=== PATIENT | female | born 1995 | race American Indian/Alaskan Native ===

== ENCOUNTER 2020-03-25 10:17 | Emergency (ER) | payer SELFPAY ==
[2020-03-25] MEDS ORDERED: ONDANSETRON 4 MG ODT TAB PO ONE (10:57)
[2020-03-25] MEDS ORDERED: KETOROLAC 60 MG/2 ML INJ IM ONE (10:57)
[2020-03-25 11:12] LABS: Bacteria,Urine 1+ /HPF (Negative); Bilirubin,Urine NEG (Negative); Blood,Urine NEG (Negative); Color,Urine Straw (Yellow); Protein,Urine <15 mg/dL mg/dL (Negative); Urobilinogen,Urine < 2.0 mg/dL (<2.0)
[2020-03-25 11:13] LABS: Basophils % (Auto) 0.8 % (0.0-1.8); Eosinophils # (Auto) 0.1 K/mm3 (0.0-0.4); Eosinophils % (Auto) 0.8 % (0.0-4.3); Hematocrit 37.4 % (30.3-42.9); Lymphocytes # (Auto) 1.2 K/mm3 (1.2-5.4); Lymphocytes % (Auto) 17.7 % (13.4-35.0); Mean Corpuscular HGB Conc 35 % (30-34); Mean Corpuscular Volume 91 fl (79-97); Monocytes # (Auto) 0.5 K/mm3 (0.0-0.8); Monocytes % (Auto) 7.5 % (0.0-7.3); Platelet Count 245 K/mm3 (140-440); Red Blood Count 4.11 M/mm3 (3.65-5.03); Red Cell Distribution Width 12.7 % (13.2-15.2)
--- NOTE | 2020-03-25 11:22 | Emergency Department Report ---
ED Abdominal Pain HPI - General Chief Complaint: Abdominal Pain Stated Complaint: ABD PAIN Time Seen by Provider: 03/25/20 10:29 Source: patient Mode of arrival: Ambulatory Limitations: No Limitations - History of Present Illness Initial Comments: Patient is a 24-year-old female presents emergency room complaints of suprapubic abdominal pain that began 3 days ago. She states it feels like a cramping sensation. She states that a couple days ago she had diarrhea but that has since resolved. She states that she has had some urinary frequency. She denies any nausea, vomiting, fever, dysuria, vaginal discharge or irritation. No past medical history. No allergies to medications. - Related Data Allergies Allergy/AdvReac Type Severity Reaction Status Date / Time No Known Allergies Allergy Unverified 03/25/20 10:26 ED Review of Systems ROS: Stated complaint: ABD PAIN Other details as noted in HPI Comment: All other systems reviewed and negative ED Past Medical Hx - Past Medical History Previous Medical History?: No - Surgical History Past Surgical History?: No - Social History Smoking Status: Never Smoker Substance Use Type: Alcohol ED Physical Exam - General Limitations: No Limitations General appearance: alert, in no apparent distress - Head Head exam: Present: atraumatic, normocephalic - Eye Eye exam: Present: normal appearance - ENT ENT exam: Present: mucous membranes moist - Respiratory Respiratory exam: Present: normal lung sounds bilaterally. Absent: respiratory distress, wheezes, rales, rhonchi, stridor, chest wall tenderness, accessory muscle use, decreased breath sounds, prolonged expiratory - Cardiovascular Cardiovascular Exam: Present: regular rate, normal rhythm, normal heart sounds. Absent: systolic murmur, diastolic murmur, rubs, gallop - GI/Abdominal GI/Abdominal exam: Present: soft, tenderness (mild suprapubic ), normal bowel sounds. Absent: distended, guarding, rebound, rigid - Neurological Exam Neurological exam: Present: alert, oriented X3 - Psychiatric Psychiatric exam: Present: normal affect, normal mood - Skin Skin exam: Present: warm, dry, intact ED Course Vital Signs 03/25/20 10:20 Temperature 98.3 F Pulse Rate 83 Respiratory 16 Rate Blood Pressure 120/64 O2 Sat by Pulse 100 Oximetry ED Medical Decision Making - Lab Data Result diagrams: 03/25/20 11:00 03/25/20 11:00 Lab Results 03/25/20 03/25/20 03/25/20 Range/Units 11:00 11:00 11:00 WBC 6.5 (4.5-11.0) K/mm3 RBC 4.11 (3.65-5.03) M/mm3 Hgb 13.0 (10.1-14.3) gm/dl Hct 37.4 (30.3-42.9) % MCV 91 (79-97) fl MCH 32 (28-32) pg MCHC 35 H (30-34) % RDW 12.7 L (13.2-15.2) % Plt Count 245 (140-440) K/mm3 Lymph % (Auto) 17.7 (13.4-35.0) % [place] % (Auto) 7.5 H (0.0-7.3) % Eos % (Auto) 0.8 (0.0-4.3) % Baso % (Auto) 0.8 (0.0-1.8) % Lymph # (Auto) 1.2 (1.2-5.4) K/mm3 [place] # (Auto) 0.5 (0.0-0.8) K/mm3 Eos # (Auto) 0.1 (0.0-0.4) K/mm3 Baso # (Auto) 0.0 (0.0-0.1) K/mm3 Seg Neutrophils % 73.2 H (40.0-70.0) % Seg Neutrophils # 4.8 (1.8-7.7) K/mm3 Sodium 139 (137-145) mmol/L Potassium 3.7 (3.6-5.0) mmol/L Chloride 104.0 (98-107) mmol/L Carbon Dioxide 27 (22-30) mmol/L Anion Gap 12 mmol/L BUN 8 (7-17) mg/dL Creatinine 0.7 (0.6-1.2) mg/dL Estimated GFR > 60 ml/min BUN/Creatinine Ratio 11 % Glucose 70 (65-100) mg/dL Calcium 9.0 (8.4-10.2) mg/dL Total Bilirubin 0.60 (0.1-1.2) mg/dL AST 11 (5-40) units/L ALT 7 (7-56) units/L Alkaline Phosphatase 49 (35-129) units/L Total Protein 6.5 (6.3-8.2) g/dL Albumin 4.1 (3.9-5) g/dL Albumin/Globulin Ratio 1.7 % Lipase 31 (13-60) units/L HCG, Qual Positive (Negative) HCG, Quant (0-4) mIU/mL Urine Color (Yellow) Urine Turbidity (Clear) Urine pH (5.0-7.0) Ur Specific [place] (1.003-1.030) Urine Protein (Negative) mg/dL Urine Glucose (UA) (Negative) mg/dL Urine Ketones (Negative) mg/dL Urine Blood (Negative) Urine Nitrite (Negative) Urine Bilirubin (Negative) Urine Urobilinogen (<2.0) mg/dL Ur Leukocyte Esterase (Negative) Urine WBC (Auto) (0.0-6.0) /HPF Urine RBC (Auto) (0.0-6.0) /HPF U Epithel Cells (Auto) (0-13.0) /HPF Urine Bacteria (Auto) (Negative) /HPF 03/25/20 03/25/20 Range/Units 11:00 Unknown WBC (4.5-11.0) K/mm3 RBC (3.65-5.03) M/mm3 Hgb (10.1-14.3) gm/dl Hct (30.3-42.9) % MCV (79-97) fl MCH (28-32) pg MCHC (30-34) % RDW (13.2-15.2) % Plt Count (140-440) K/mm3 Lymph % (Auto) (13.4-35.0) % [place] % (Auto) (0.0-7.3) % Eos % (Auto) (0.0-4.3) % Baso % (Auto) (0.0-1.8) % Lymph # (Auto) (1.2-5.4) K/mm3 [place] # (Auto) (0.0-0.8) K/mm3 Eos # (Auto) (0.0-0.4) K/mm3 Baso # (Auto) (0.0-0.1) K/mm3 Seg Neutrophils % (40.0-70.0) % Seg Neutrophils # (1.8-7.7) K/mm3 Sodium (137-145) mmol/L Potassium (3.6-5.0) mmol/L Chloride (98-107) mmol/L Carbon Dioxide (22-30) mmol/L Anion Gap mmol/L BUN (7-17) mg/dL Creatinine (0.6-1.2) mg/dL Estimated GFR ml/min BUN/Creatinine Ratio % Glucose (65-100) mg/dL Calcium (8.4-10.2) mg/dL Total Bilirubin (0.1-1.2) mg/dL AST (5-40) units/L ALT (7-56) units/L Alkaline Phosphatase (35-129) units/L Total Protein (6.3-8.2) g/dL Albumin (3.9-5) g/dL Albumin/Globulin Ratio % Lipase (13-60) units/L HCG, Qual (Negative) HCG, Quant 62297 H (0-4) mIU/mL Urine Color Straw (Yellow) Urine Turbidity Slightly-cloudy (Clear) Urine pH 7.0 (5.0-7.0) Ur Specific [place] 1.003 (1.003-1.030) Urine Protein <15 mg/dl (Negative) mg/dL Urine Glucose (UA) Neg (Negative) mg/dL Urine Ketones Neg (Negative) mg/dL Urine Blood Neg (Negative) Urine Nitrite Neg (Negative) Urine Bilirubin Neg (Negative) Urine Urobilinogen < 2.0 (<2.0) mg/dL Ur Leukocyte Esterase Tr (Negative) Urine WBC (Auto) 2.0 (0.0-6.0) /HPF Urine RBC (Auto) 6.0 (0.0-6.0) /HPF U Epithel Cells (Auto) 13.0 (0-13.0) /HPF Urine Bacteria (Auto) 1+ (Negative) /HPF - Radiology Data Radiology results: report reviewed Ordering Physician: OCTAVIA GUZMÁN Date of Service: 03/25/20 Procedure(s): US OB <= 14 weeks fetus Accession Number(s): [id number] cc: OCTAVIA GUZMÁN ADDENDUM Correction: Cardiac activity was documented at 165 bpm. Signer Name: Ryan Ho MD Signed: 03/25/2020 12:03 PM Workstation Name: [id number] Transcribed By: Addendum Dictated By: Ryan Ho MD Addendum Electronically Authenticated By: Ryan Ho MD Addendum Signed Date/Time: 03/25/20 1203 DD/ TD/TT: / EARLY OBSTETRICAL ULTRASOUND INDICATION: Suprapubic pain COMPARISON: None TECHNIQUE: Transabdominal FINDINGS: Uterus measures 8.7 cm in length. Intrauterine is noted with pole and yolk sac seen. Cardiac activity was documented at 100 cc 5 bpm. Estimated gestational age by crown- rump length is 8 weeks 1 day. This corresponds with clinical dating. No obvious abnormalities are seen. No significant implantational bleed is noted. No significant adnexal abnormalities are seen. Ovaries are visualized and show flow. Right ovary shows a 1.4 cm simple cyst. No free fluid is seen. IMPRESSION: Normal-appearing early intrauterine Signer Name: Ryan Ho MD Signed: 03/25/2020 11:41 AM Workstation Name: [id number] Transcribed By: Dictated By: Ryan Ho MD Electronically Authenticated By: Ryan Ho MD Signed Date/Time: 03/25/20 1141 DD/ 113 TD/TT: - Medical Decision Making Patient is a 24-year-old female presents emergency room complaints of suprapubic abdominal pain that began 3 days ago. She states it feels like a cramping sensation. She states that a couple days ago she had diarrhea but that has since resolved. She states that she has had some urinary frequency. She denies any nausea, vomiting, fever, dysuria, vaginal discharge or irritation. No past medical history. No allergies to medications. Vitals are normal. On exam patient has mild suprapubic tenderness palpation, no guarding, no rebound, no rigidity, normal bowel sounds, no peritoneal signs. Initially ordered for patient to have Toradol and Zofran, saw that on patient's ultrasound appeared to be an IUP, canceled the Toradol, patient did not receive Toradol. [place] [id number]. UA is within normal limits. OB ultrasound: Normal-appearing early intrauterine . Patient given Tylenol and Zofran while in the ED and symptoms improved and she has feeling better and ready go home. Discussed all results with patient. She denies any vaginal bleeding, she states that her last menstrual cycle was in January. She states that she did not know that she was . Advised patient May take Tylenol as needed o [id number] for pain. Increase your water intake. Please take a vitamin [id number]. Follow-up with [facility]. Return to emergency room for any new or worsening symptoms. - Differential Diagnosis Fibroids, ovarian cyst, adenomyosis, endometriosis, IUP, ectopic, UTI Critical care attestation.: If time is entered above; I have spent that time in minutes in the direct care of this critically ill patient, excluding procedure time. ED Disposition Clinical Impression: Suprapubic abdominal pain Qualifiers: Weeks of gestation: 8 weeks Qualified Code(s): Z3A.08 - 8 weeks gestation of Disposition: - TO HOME OR SELFCARE Is pt being admited?: No Does the pt Need Aspirin: No Condition: Stable Instructions: Abdominal Pain in (ED) Additional Instructions: May take Tylenol as needed [id number] for pain. Increase your water intake. Please take a vitamin [id number]. Follow-up with [facility]. Return to emergency room for any new or worsening symptoms. Referrals: PRIMARY CARE, [Primary Care Provider] - 2-3 Days [facility] [Provider Group] - 2-3 Days [facility] [Provider Group] - 2-3 Days [facility] [Provider Group] - 2-3 Days Time of Disposition: 12:32 Print Language: MACEDONIAN
[2020-03-25] MEDS ORDERED: ACETAMINOPHEN 325 MG TAB PO ONE (11:25)
[2020-03-25 11:45] LABS: Alanine Aminotransferase 7 units/L (7-56); Albumin 4.1 g/dL (3.9-5); Blood Urea Nitrogen 8 mg/dL (7-17); Hemolysis Index 3
[2020-03-25 11:46] LABS: BUN/Creatinine Ratio 11
--- NOTE | 2020-03-25 11:46 | Ultrasound Report ---
EARLY OBSTETRICAL ULTRASOUND INDICATION: Suprapubic pain COMPARISON: None TECHNIQUE: Transabdominal FINDINGS: Uterus measures 8.7 cm in length. Intrauterine is noted with pole and yolk sac seen. Cardiac activity was documented at 100 cc 5 bpm. Estimated gestational age by crown-rump le ngth is 8 weeks 1 day. This corresponds with clinical dating. No obvious abnormalities are seen. No s ignificant implantational bleed is noted. No significant adnexal abnormalities are seen. Ovaries are visualized and show flow. Right ovary show s a 1.4 cm simple cyst. No free fluid is seen. IMPRESSION: Normal-appearing early intrauterine Signer Name: Ryan Ho MD Signed: 03/25/2020 11:41 AM Workstation Name: [id number]
[2020-03-25 12:31] VITALS: BP 120/64
== END 2020-03-25 12:37 | disposition home or self-care (01) ==
LOC: ED 10:17
DX: O26.891 Other specified pregnancy related conditions, first trimester (principal); R10.2 Pelvic and perineal pain; R19.7 Diarrhea, unspecified; Z3A.01 Less than 8 weeks gestation of pregnancy
CPT/HCPCS: 36415; 76801; 80053; 81001; 83690; 84702; 84703; 85025; J1885; Q0162